=== PATIENT | male | born 1965 | race Caucasian/White ===

== ENCOUNTER 2025-03-05 05:56 | Inpatient (IN) | payer BC, OTHER ==
[~2025-03-05] VITALS: Ht 167.6 cm; Wt 70.3 kg
[2025-03-05 07:22] LABS: BASOPHILS % 0.9 % (0.0-2.0); EOSINOPHILS % 1.6 % (0.0-5.0); HEMATOCRIT. 29.4 % (42.0-52.0); HEMOGLOBIN. 9.6 g/dL (14.0-18.0); LYMPHOCYTES % 9.8 % (20.0-50.0); MEAN PLATELET VOLUME 6.3 fl (7.4-10.4); MONOCYTES % 5.0 % (2.0-8.0); NEUTROPHILS % 82.7 % (40.0-76.0); PLATELET 282 x1000/uL (130-400); RED BLOOD CELL COUNT 3.26 mill/uL (4.7-6.1); RED CELL DISTRIBUTION WIDTH 21.1 % (11.6-14.6)
[2025-03-05 07:32] LABS: INR 1.1
[2025-03-05] MEDS: SODIUM CHLORIDE 0.9% (SEPSIS BOLUS) IV ONE (07:37)
[2025-03-05] MEDS: PIPERACILLIN/TAZO 3.375G/50ML 50 ML IV ONE (07:37)
[2025-03-05 07:41] LABS: CREATININE 3.7 mg/dL (0.6-1.3); UREA NITROGEN BLOOD 23 mg/dL (9-23)
[2025-03-05 07:42] LABS: ETHANOL BLOOD < 10 mg/dL (<10)
[2025-03-05 07:44] LABS: TROPONIN I HIGH SENSITIVITY 213 ng/L (3.0-53)
[2025-03-05] MEDS: ENOXAPARIN 60MG/0.6ML SYR SUBCUT ONE (08:00)
[2025-03-05] MEDS: VANCOMYCIN 1G PREMIX 200 ML IV ONE (08:01)
[2025-03-05 09:35] VITALS: BP 152/62; PULSE 72; RESP 14; TEMP 36.2; O2SAT 88
[2025-03-05] MEDS ORDERED: DEXTROSE 50% WATER 50ML SYRINGE IV PRN (10:30)
[2025-03-05 11:53] LABS: CLARITY URINE CLEAR (CLEAR); COLOR URINE YELLOW (YELLOW); GLUCOSE URINE 1+ (NEGATIVE); KETONES URINE NEGATIVE (NEGATIVE); LEUKOCYTE ESTERASE URINE TRACE (NEGATIVE); NITRITE URINE NEGATIVE (NEGATIVE); OCCULT BLOOD URINE 1+ (NEGATIVE); PH URINE >=9.0 (4.5-8.0); PROTEIN URINE 3+ (NEGATIVE); SPECIFIC GRAVITY URINE 1.012 (1.005-1.030); UROBILINOGEN URINE 0.2 E.U./dL (0.2-1.0)
[2025-03-05 12:30] LABS: *AMPHETAMINES SCREEN URINE NEGATIVE (NEGATIVE); *BARBITURATES SCREEN URINE NEGATIVE (NEGATIVE); *BENZODIAZEPINES SCREEN URINE NEGATIVE (NEGATIVE); *COCAINE SCREEN URINE NEGATIVE (NEGATIVE); METHADONE URINE SCREEN NEGATIVE (NEGATIVE); OPIATES URINE SCREEN NEGATIVE (NEGATIVE); PHENCYCLIDINE URINE SCREEN NEGATIVE (NEGATIVE)
[2025-03-05 12:31] LABS: CANNABINOID URINE SCREEN NEGATIVE (NEGATIVE); ECSTASY MDMA SCREEN URINE NEGATIVE (NEGATIVE)
[2025-03-05] MEDS: BLOOD SUGAR DIAGNOSTIC STRIP TEST SCH (12:40)
[2025-03-05 12:46] LABS: BACTERIA URINE TRACE; SQUAMOUS EPITHELIAL CELL URINE NONE SEEN /lpf (RARE/1+); WBC URINE 0-2 /hpf (0-2)
[2025-03-05] MEDS: INSULIN LISPRO 100 UNITS/ML SUBCUT SCH (12:57)
[2025-03-05 13:27] VITALS: BP 108/60; PULSE 71; RESP 18; TEMP 37.7; O2SAT 99
[2025-03-05] MEDS ORDERED: DORZ10DR9 LEFTEYE (15:40)
[2025-03-05] MEDS ORDERED: CIPR-452 PO (15:40)
[2025-03-05] MEDS ORDERED: SENN-362 MT (15:40)
[2025-03-05] MEDS ORDERED: FAMO20TA8 PO (15:40)
[2025-03-05] MEDS ORDERED: POLY250017 MT (15:40)
[2025-03-05] MEDS ORDERED: AMLO10TA80 PO (15:40)
[2025-03-05] MEDS ORDERED: INSLIS SUBCUT (15:40)
[2025-03-05] MEDS ORDERED: BISA10SU62 RC (15:40)
[2025-03-05] MEDS ORDERED: LEVO50TA8 PO (15:40)
[2025-03-05] MEDS ORDERED: BRIM15DR8 LEFTEYE ×2 (15:40)
[2025-03-05] MEDS ORDERED: CARV25TA47 PO (15:40)
[2025-03-05] MEDS ORDERED: ATOR20TA65 PO (15:40)
[2025-03-05 16:54] VITALS: BP 153/64; PULSE 75; RESP 18; TEMP 36.4; O2SAT 98
[2025-03-05 16:55] VITALS: BP 152/62; PULSE 72; RESP 14; TEMP 36.1956
[2025-03-05 20:12] VITALS: BP 167/75; PULSE 82; RESP 16; TEMP 36.7; O2SAT 95
[2025-03-05] MEDS: LEVETIRACETAM 500MG PREMIX 100 ML IV SCH (20:23)
[2025-03-05 20:49] LABS: HEPATITIS A AB IGM NEGATIVE (Negative); HEPATITIS B CORE AB IGM NEGATIVE (Negative)
[2025-03-05 20:50] LABS: HEPATITIS C AB NON REACTIVE (Neg) (Negative)
[2025-03-05] MEDS: AMLODIPINE 5MG TABLET PO SCH (22:37)
[2025-03-05 22:49] LABS: TROPONIN I HIGH SENSITIVITY 207 ng/L (3.0-53)
[2025-03-06] VITALS (80 sets, daily range): BP systolic 98–230; BP diastolic 51–100; PULSE 66–102; RESP 10–24; TEMP 36.00288–37.2; O2SAT 96–100
[2025-03-06 01:32] LABS: TROPONIN I HIGH SENSITIVITY 193 ng/L (3.0-53)
[2025-03-06] MEDS: MIDAZOLAM HCL 2 MG/2 ML VIAL IV NR (03:22)
[2025-03-06] MEDS ORDERED: NOREPINEPHRINE 32 MG in DEXT 5% WATER 218 ML IV PRN (03:45)
[2025-03-06] MEDS: MIDAZOLAM 100MG/100ML PMX 100 ML IV PRN (04:45)
[2025-03-06] MEDS: FENTANYL 2500MCG/250ML PMX 250 ML IV PRN (04:46)
[2025-03-06 05:29] LABS: BG BASE EXCESS 3.5 mmol/L (-2.0-3.0); BG CARBOXYHEMOGLOBIN 0.9 % (0.5-1.5); BG DEOXYHEMOGLOBIN 0.0 % (0.0-5.0); BG FRACTION INSPIRED OXYGEN 100; BG HCO3 ACT 25.9 mmol/L (21.0-28.0); BG METHEMOGLOBIN 0.1 % (0.5-1.5); BG OXYGEN SATURATION 100.0 % (94.0-98.0); BG OXYHEMOGLOBIN 99.0 % (94.0-98.0); BG PCO2 31.6 mmHg (35.0-48.0); BG PEEP (cmH2O) 5.0 cmH2O; BG PH 7.531 (7.350-7.450); BG PO2 379.7 mmHg (83.0-108.0); BG SAMPLE SITE RIGHT RADIAL; BG TIDAL VOLUME(mL) 500.0 mL; BG TOTAL HEMOGLOBIN 10.9 g/dL (13.5-17.5); BG VENT MODE VENT - AC; BG VENT RATE 18.0 set
[2025-03-06] MEDS: NOREPINEPHRINE 8MG/250ML PMX 250 ML IV PRN (07:12)
[2025-03-06 07:14] LABS: PLATELET 230 x1000/uL (130-400); RED BLOOD CELL COUNT 3.00 mill/uL (4.7-6.1); RED CELL DISTRIBUTION WIDTH 20.5 % (11.6-14.6)
[2025-03-06 08:11] LABS: CREATININE 4.8 mg/dL (0.6-1.3); UREA NITROGEN BLOOD 35.0 mg/dL (9-23)
[2025-03-06] MEDS ORDERED: LIDOCAINE HCL 1% 10 MG/ML 10ML VIAL ONE (08:30)
[2025-03-06] MEDS: ENOXAPARIN 30MG/0.3ML SYR SUBCUT SCH (08:42)
[2025-03-06 09:26] LABS: PHOSPHORUS 3.5 mg/dL (2.5-4.9)
[2025-03-06] MEDS: PIPERACILLIN/TAZO 3.375G/50ML 50 ML IV SCH (12:44)
[2025-03-06 13:14] LABS: T4 FREE 1.15 ng/dL (0.89-1.76)
[2025-03-06 16:14] LABS: BASOPHILS % 0.8 % (0.0-2.0); EOSINOPHILS % 1.0 % (0.0-5.0); HEMATOCRIT. 32.2 % (42.0-52.0); HEMOGLOBIN. 10.5 g/dL (14.0-18.0); LYMPHOCYTES % 16.1 % (20.0-50.0); MEAN PLATELET VOLUME 6.2 fl (7.4-10.4); MONOCYTES % 9.7 % (2.0-8.0); NEUTROPHILS % 72.4 % (40.0-76.0); PLATELET 272 x1000/uL (130-400); RED BLOOD CELL COUNT 3.53 mill/uL (4.7-6.1); RED CELL DISTRIBUTION WIDTH 20.8 % (11.6-14.6)
[2025-03-06] MEDS: CARVEDILOL 3.125 MG TABLET PO SCH (20:42)
[2025-03-06] MEDS ORDERED: LORAZEPAM 2MG/ML UD SYRINGE IV PRN (22:15)
[2025-03-07] VITALS (85 sets, daily range): BP systolic 107–169; BP diastolic 52–79; PULSE 68–89; RESP 0–19; TEMP 36.6696–36.9; O2SAT 99–100
[2025-03-07 06:11] LABS: BASOPHILS % 0.5 % (0.0-2.0); EOSINOPHILS % 0.9 % (0.0-5.0); HEMATOCRIT. 28.0 % (42.0-52.0); HEMOGLOBIN. 9.3 g/dL (14.0-18.0); LYMPHOCYTES % 13.3 % (20.0-50.0); MEAN PLATELET VOLUME 6.6 fl (7.4-10.4); MONOCYTES % 8.9 % (2.0-8.0); NEUTROPHILS % 76.4 % (40.0-76.0); PLATELET 232 x1000/uL (130-400); RED BLOOD CELL COUNT 3.08 mill/uL (4.7-6.1); RED CELL DISTRIBUTION WIDTH 20.8 % (11.6-14.6)
[2025-03-07 06:23] LABS: CREATININE 4.6 mg/dL (0.6-1.3)
[2025-03-07 06:24] LABS: UREA NITROGEN BLOOD 34.0 mg/dL (9-23)
[2025-03-07 06:26] LABS: PHOSPHORUS 3.7 mg/dL (2.5-4.9)
[2025-03-07 08:36] LABS: BG BASE EXCESS 5.1 mmol/L (-2.0-3.0); BG CARBOXYHEMOGLOBIN 1.0 % (0.5-1.5); BG DEOXYHEMOGLOBIN 1.1 % (0.0-5.0); BG FRACTION INSPIRED OXYGEN 40; BG HCO3 ACT 29.5 mmol/L (21.0-28.0); BG METHEMOGLOBIN 0.3 % (0.5-1.5); BG OXYGEN SATURATION 98.9 % (94.0-98.0); BG OXYHEMOGLOBIN 97.6 % (94.0-98.0); BG PCO2 42.6 mmHg (35.0-48.0); BG PEEP (cmH2O) 5.0 cmH2O; BG PH 7.458 (7.350-7.450); BG PO2 120.1 mmHg (83.0-108.0); BG SAMPLE SITE RIGHT RADIAL; BG TIDAL VOLUME(mL) 450.0 mL; BG TOTAL HEMOGLOBIN 9.6 g/dL (13.5-17.5); BG TOTAL RESPIRATORY RATE 14 b/min; BG VENT MODE VENT - AC; BG VENT RATE 14.0 set
[2025-03-07] MEDS: CLONIDINE 0.1MG TABLET PO PRN (15:34)
[2025-03-07] MEDS: ATORVASTATIN CALCIUM 20MG TABLET PO SCH (20:10)
[2025-03-08] VITALS (108 sets, daily range): BP systolic 97–154; BP diastolic 47–64; PULSE 59–78; RESP 0–21; TEMP 36.3–37.1; O2SAT 99–100
[2025-03-08 07:11] LABS: BASOPHILS % 0.4 % (0.0-2.0); EOSINOPHILS % 1.6 % (0.0-5.0); HEMATOCRIT. 24.9 % (42.0-52.0); HEMOGLOBIN. 8.1 g/dL (14.0-18.0); LYMPHOCYTES % 13.6 % (20.0-50.0); MEAN PLATELET VOLUME 6.8 fl (7.4-10.4); MONOCYTES % 9.4 % (2.0-8.0); NEUTROPHILS % 75.0 % (40.0-76.0); PLATELET 185 x1000/uL (130-400); RED BLOOD CELL COUNT 2.71 mill/uL (4.7-6.1); RED CELL DISTRIBUTION WIDTH 19.6 % (11.6-14.6)
[2025-03-08 07:27] LABS: CREATININE 4.8 mg/dL (0.6-1.3); UREA NITROGEN BLOOD 35.0 mg/dL (9-23)
[2025-03-08 07:30] LABS: PHOSPHORUS 4.5 mg/dL (2.5-4.9)
[2025-03-08] MEDS: LEVOTHYROXINE SODIUM 50MCG TABLET PO SCH (08:10)
[2025-03-08 08:57] LABS: BG BASE EXCESS 4.5 mmol/L (-2.0-3.0); BG CARBOXYHEMOGLOBIN 1.4 % (0.5-1.5); BG DEOXYHEMOGLOBIN 0.7 % (0.0-5.0); BG FRACTION INSPIRED OXYGEN 40; BG HCO3 ACT 28.2 mmol/L (21.0-28.0); BG METHEMOGLOBIN 0.3 % (0.5-1.5); BG OXYGEN SATURATION 99.3 % (94.0-98.0); BG OXYHEMOGLOBIN 97.6 % (94.0-98.0); BG PCO2 38.0 mmHg (35.0-48.0); BG PEEP (cmH2O) 5.0 cmH2O; BG PH 7.488 (7.350-7.450); BG PO2 142.2 mmHg (83.0-108.0); BG SAMPLE SITE RIGHT RADIAL; BG TIDAL VOLUME(mL) 450.0 mL; BG TOTAL HEMOGLOBIN 9.1 g/dL (13.5-17.5); BG TOTAL RESPIRATORY RATE 14 b/min; BG VENT MODE VENT - AC; BG VENT RATE 14.0 set
[2025-03-08 10:55] LABS: ASPARTATE AMINOTRANSFERASE 17 IU/L (<34); BILIRUBIN DIRECT 0.2 mg/dL (<=3.0); BILIRUBIN TOTAL 0.7 mg/dL (0.1-1.0); PROTEIN TOTAL 5.5 g/dL (6.0-8.3)
[2025-03-08] MEDS: DEXMEDETOMIDINE 400 MCG/100 ML 100 ML IV PRN (12:39)
[2025-03-08] MEDS: LACTULOSE 20G/30ML UDC NG NR (14:18)
[2025-03-09] VITALS (93 sets, daily range): BP systolic 74–176; BP diastolic 50–125; PULSE 54–94; RESP 10–28; TEMP 36.3–36.9; O2SAT 98–100
[2025-03-09 06:55] LABS: BASOPHILS % 0.6 % (0.0-2.0); EOSINOPHILS % 5.7 % (0.0-5.0); HEMATOCRIT. 24.9 % (42.0-52.0); HEMOGLOBIN. 8.3 g/dL (14.0-18.0); LYMPHOCYTES % 14.3 % (20.0-50.0); MEAN PLATELET VOLUME 6.9 fl (7.4-10.4); MONOCYTES % 10.4 % (2.0-8.0); NEUTROPHILS % 69.0 % (40.0-76.0); PLATELET 175 x1000/uL (130-400); RED BLOOD CELL COUNT 2.75 mill/uL (4.7-6.1); RED CELL DISTRIBUTION WIDTH 18.7 % (11.6-14.6)
[2025-03-09 07:03] LABS: UREA NITROGEN BLOOD 47 mg/dL (9-23)
[2025-03-09 07:05] LABS: ASPARTATE AMINOTRANSFERASE 18 IU/L (<34); BILIRUBIN TOTAL 0.7 mg/dL (0.1-1.0); PHOSPHORUS 5.8 mg/dL (2.5-4.9); PROTEIN TOTAL 5.8 g/dL (6.0-8.3)
[2025-03-09 07:25] LABS: CREATININE 5.8 mg/dL (0.6-1.3)
[2025-03-09 10:25] LABS: BG BASE EXCESS 1.8 mmol/L (-2.0-3.0); BG CARBOXYHEMOGLOBIN 0.6 % (0.5-1.5); BG DEOXYHEMOGLOBIN 1.6 % (0.0-5.0); BG FRACTION INSPIRED OXYGEN 40; BG HCO3 ACT 26.2 mmol/L (21.0-28.0); BG METHEMOGLOBIN 0.3 % (0.5-1.5); BG OXYGEN SATURATION 98.4 % (94.0-98.0); BG OXYHEMOGLOBIN 97.5 % (94.0-98.0); BG PCO2 40.1 mmHg (35.0-48.0); BG PEEP (cmH2O) 5.0 cmH2O; BG PH 7.433 (7.350-7.450); BG PO2 119.6 mmHg (83.0-108.0); BG SAMPLE SITE RIGHT RADIAL; BG TIDAL VOLUME(mL) 400.0 mL; BG TOTAL HEMOGLOBIN 9.6 g/dL (13.5-17.5); BG VENT MODE VENT - AC; BG VENT RATE 14.0 set
[2025-03-09 13:20] LABS: PROTEIN BODY FLUID 3.2 gm/dL
[2025-03-09 13:37] LABS: BODY FLUID RBC 77 /cu mm (0-2000); BODY FLUID WBC 26 /cu mm (0-200)
[2025-03-09 18:48] LABS: BG BASE EXCESS 2.0 mmol/L (-2.0-3.0); BG CARBOXYHEMOGLOBIN 0.4 % (0.5-1.5); BG DEOXYHEMOGLOBIN 0.7 % (0.0-5.0); BG FRACTION INSPIRED OXYGEN 40; BG HCO3 ACT 25.8 mmol/L (21.0-28.0); BG METHEMOGLOBIN 0.3 % (0.5-1.5); BG OXYGEN SATURATION 99.3 % (94.0-98.0); BG OXYHEMOGLOBIN 98.6 % (94.0-98.0); BG PCO2 36.8 mmHg (35.0-48.0); BG PEEP (cmH2O) 5.0 cmH2O; BG PH 7.463 (7.350-7.450); BG PO2 154.4 mmHg (83.0-108.0); BG SAMPLE SITE RIGHT RADIAL; BG TOTAL HEMOGLOBIN 10.1 g/dL (13.5-17.5); BG VENT MODE VENT - CPAP
[2025-03-09] MEDS: EPOETIN ALFA-EPBX 4,000 UNIT/ML VIAL SUBCUT SCH (20:45)
[2025-03-09 21:29] LABS: BG BASE EXCESS 3.5 mmol/L (-2.0-3.0); BG CARBOXYHEMOGLOBIN 0.6 % (0.5-1.5); BG DEOXYHEMOGLOBIN 1.9 % (0.0-5.0); BG FLOW(L/min) 3.00 L/min; BG FRACTION INSPIRED OXYGEN 32; BG HCO3 ACT 27.9 mmol/L (21.0-28.0); BG METHEMOGLOBIN 0.3 % (0.5-1.5); BG OXYGEN SATURATION 98.1 % (94.0-98.0); BG OXYHEMOGLOBIN 97.2 % (94.0-98.0); BG PCO2 41.9 mmHg (35.0-48.0); BG PH 7.442 (7.350-7.450); BG PO2 104.2 mmHg (83.0-108.0); BG SAMPLE SITE RIGHT RADIAL; BG TOTAL HEMOGLOBIN 10.9 g/dL (13.5-17.5); BG VENT MODE NASAL CANNULA
[2025-03-10] VITALS (53 sets, daily range): BP systolic 77–177; BP diastolic 17–150; PULSE 63–87; RESP 13–26; TEMP 36.6–36.9; O2SAT 87–100
[2025-03-10 06:37] LABS: BASOPHILS % 0.7 % (0.0-2.0); EOSINOPHILS % 2.8 % (0.0-5.0); HEMATOCRIT. 26.9 % (42.0-52.0); HEMOGLOBIN. 8.7 g/dL (14.0-18.0); LYMPHOCYTES % 18.7 % (20.0-50.0); MEAN PLATELET VOLUME 7.0 fl (7.4-10.4); MONOCYTES % 12.4 % (2.0-8.0); NEUTROPHILS % 65.4 % (40.0-76.0); PLATELET 178 x1000/uL (130-400); RED BLOOD CELL COUNT 2.93 mill/uL (4.7-6.1); RED CELL DISTRIBUTION WIDTH 18.8 % (11.6-14.6)
[2025-03-10 07:04] LABS: UREA NITROGEN BLOOD 43 mg/dL (9-23)
[2025-03-10 07:06] LABS: ASPARTATE AMINOTRANSFERASE 17 IU/L (<34); BILIRUBIN TOTAL 0.7 mg/dL (0.1-1.0); PROTEIN TOTAL 6.1 g/dL (6.0-8.3)
[2025-03-10 07:09] LABS: CREATININE 5.6 mg/dL (0.6-1.3)
[2025-03-10] MEDS: ONDANSETRON HCL 4MG/2ML INJ IV PRN (08:33)
[2025-03-10] MEDS: ACETAMINOPHEN 325MG TABLET PO PRN (08:34)
[2025-03-10] MEDS ORDERED: AMLODIPINE 5MG TABLET PO SCH (10:00)
[2025-03-10 11:39] LABS: BG BASE EXCESS -0.2 mmol/L (-2.0-3.0); BG CARBOXYHEMOGLOBIN 1.5 % (0.5-1.5); BG DEOXYHEMOGLOBIN 1.5 % (0.0-5.0); BG FLOW(L/min) 1.00 L/min; BG FRACTION INSPIRED OXYGEN 24; BG HCO3 ACT 23.4 mmol/L (21.0-28.0); BG METHEMOGLOBIN 0.0 % (0.5-1.5); BG OXYGEN SATURATION 98.5 % (94.0-98.0); BG OXYHEMOGLOBIN 97.0 % (94.0-98.0); BG PCO2 34.1 mmHg (35.0-48.0); BG PH 7.454 (7.350-7.450); BG PO2 110.4 mmHg (83.0-108.0); BG SAMPLE SITE RIGHT RADIAL; BG TOTAL HEMOGLOBIN 9.4 g/dL (13.5-17.5); BG VENT MODE NASAL CANNULA
[2025-03-11] VITALS (26 sets, daily range): BP systolic 107–173; BP diastolic 46–147; PULSE 69–84; RESP 11–26; TEMP 36.114–36.8; O2SAT 95–100
[2025-03-11 05:51] LABS: BASOPHILS % 1.2 % (0.0-2.0); EOSINOPHILS % 8.7 % (0.0-5.0); HEMATOCRIT. 29.9 % (42.0-52.0); HEMOGLOBIN. 9.9 g/dL (14.0-18.0); LYMPHOCYTES % 22.6 % (20.0-50.0); MEAN PLATELET VOLUME 7.1 fl (7.4-10.4); MONOCYTES % 10.6 % (2.0-8.0); NEUTROPHILS % 56.9 % (40.0-76.0); PLATELET 189 x1000/uL (130-400); RED BLOOD CELL COUNT 3.33 mill/uL (4.7-6.1); RED CELL DISTRIBUTION WIDTH 18.5 % (11.6-14.6)
[2025-03-11 05:54] LABS: UREA NITROGEN BLOOD 52 mg/dL (9-23)
[2025-03-11 05:56] LABS: ASPARTATE AMINOTRANSFERASE 15 IU/L (<34); BILIRUBIN TOTAL 0.5 mg/dL (0.1-1.0); PROTEIN TOTAL 6.2 g/dL (6.0-8.3)
[2025-03-11 06:07] LABS: CREATININE 6.2 mg/dL (0.6-1.3)
[2025-03-11] MEDS: AMLODIPINE 10MG TABLET PO SCH (09:16)
[2025-03-12] VITALS: BP 156/92; PULSE 81; RESP 18; TEMP 36.8; O2SAT 98
[2025-03-12 04:00] VITALS: BP 134/73; PULSE 75; RESP 20; TEMP 37.2; O2SAT 97
[2025-03-12 07:04] LABS: BASOPHILS % 1.1 % (0.0-2.0); EOSINOPHILS % 7.9 % (0.0-5.0); HEMATOCRIT. 29.6 % (42.0-52.0); HEMOGLOBIN. 9.6 g/dL (14.0-18.0); LYMPHOCYTES % 26.8 % (20.0-50.0); MEAN PLATELET VOLUME 7.2 fl (7.4-10.4); MONOCYTES % 9.2 % (2.0-8.0); NEUTROPHILS % 55.0 % (40.0-76.0); PLATELET 187 x1000/uL (130-400); RED BLOOD CELL COUNT 3.26 mill/uL (4.7-6.1); RED CELL DISTRIBUTION WIDTH 18.7 % (11.6-14.6)
[2025-03-12 07:26] LABS: UREA NITROGEN BLOOD 43.0 mg/dL (9-23)
[2025-03-12 07:28] LABS: PHOSPHORUS 4.9 mg/dL (2.5-4.9)
[2025-03-12 08:00] VITALS: BP 144/69; PULSE 81; RESP 17; TEMP 36.3; O2SAT 96
[2025-03-12 08:43] LABS: CREATININE 5.4 mg/dL (0.6-1.3)
[2025-03-12] MEDS: SODIUM ZIRCONIUM CYCLOSILICATE 10GM/PACKET PO NR (10:29)
[2025-03-12 12:00] VITALS: BP 160/70; PULSE 75; RESP 16; TEMP 36.2; O2SAT 97
[2025-03-12 16:00] VITALS: BP 147/69; PULSE 72; RESP 16; TEMP 36.3; O2SAT 97
[2025-03-12 20:00] VITALS: BP 139/60; PULSE 77; RESP 18; TEMP 36.3; O2SAT 97
[2025-03-12] MEDS: LEVETIRACETAM 250MG TABLET PO SCH (21:11)
[2025-03-12] MEDS: CARVEDILOL 3.125 MG TABLET PO SCH (21:13)
[2025-03-13] VITALS (16 sets, daily range): BP systolic 88–161; BP diastolic 48–76; PULSE 18–90; RESP 17–50; TEMP 36.4–36.61404; O2SAT 96–98
[2025-03-13 06:06] LABS: UREA NITROGEN BLOOD 53.0 mg/dL (9-23)
[2025-03-13 06:09] LABS: CREATININE 6.8 mg/dL (0.6-1.3); PHOSPHORUS 6.1 mg/dL (2.5-4.9)
[2025-03-13 06:14] LABS: BASOPHILS % 0.7 % (0.0-2.0); EOSINOPHILS % 5.6 % (0.0-5.0); HEMATOCRIT. 28.5 % (42.0-52.0); HEMOGLOBIN. 9.0 g/dL (14.0-18.0); LYMPHOCYTES % 23.6 % (20.0-50.0); MEAN PLATELET VOLUME 6.9 fl (7.4-10.4); MONOCYTES % 7.0 % (2.0-8.0); NEUTROPHILS % 63.1 % (40.0-76.0); PLATELET 210 x1000/uL (130-400); RED BLOOD CELL COUNT 3.12 mill/uL (4.7-6.1); RED CELL DISTRIBUTION WIDTH 18.6 % (11.6-14.6)
== END 2025-03-13 20:58 | DRG 100 ==
LOC: ER 05:56 → 7WST 07:51 → EDBEDREQ 07:53 → EDBEDREQTM 07:53 → ENRESERV 07:58 → CVICU 03-06 03:13 → 7WST 03-11 18:53
PROVIDERS: ADMIT Internal Medicine; ATTEND Internal Medicine
PROC: 5A1945Z Respiratory Ventilation, 24-96 Consecutive Hours (ICD-10-PCS; principal; 2025-03-06)
PROC: 0BH17EZ Insertion of Endotracheal Airway into Trachea, Via Natural or Artificial Opening (ICD-10-PCS; 2025-03-06)
PROC: 4A00X4Z Measurement of Central Nervous Electrical Activity, External Approach (ICD-10-PCS; 2025-03-06)
PROC: 5A12012 Performance of Cardiac Output, Single, Manual (ICD-10-PCS; 2025-03-06)
PROC: 02HV33Z Insertion of Infusion Device into Superior Vena Cava, Percutaneous Approach (ICD-10-PCS; 2025-03-06)
PROC: B548ZZA Ultrasonography of Superior Vena Cava, Guidance (ICD-10-PCS; 2025-03-06)
PROC: 5A1D70Z Performance of Urinary Filtration, Intermittent, Less than 6 Hours Per Day (ICD-10-PCS; 2025-03-06)
PROC: 5A1D70Z Performance of Urinary Filtration, Intermittent, Less than 6 Hours Per Day (ICD-10-PCS; 2025-03-07)
PROC: 0W993ZZ Drainage of Right Pleural Cavity, Percutaneous Approach (ICD-10-PCS; 2025-03-09)
PROC: 5A1D70Z Performance of Urinary Filtration, Intermittent, Less than 6 Hours Per Day (ICD-10-PCS; 2025-03-09)
PROC: 5A1D70Z Performance of Urinary Filtration, Intermittent, Less than 6 Hours Per Day (ICD-10-PCS; 2025-03-11)
PROC: 5A1D70Z Performance of Urinary Filtration, Intermittent, Less than 6 Hours Per Day (ICD-10-PCS; 2025-03-13)
DX: G40.909 Epilepsy, unspecified, not intractable, without status epilepticus (principal); I21.4 Non-ST elevation (NSTEMI) myocardial infarction; N18.6 End stage renal disease; J96.01 Acute respiratory failure with hypoxia; I46.9 Cardiac arrest, cause unspecified; I42.8 Other cardiomyopathies; I50.22 Chronic systolic (congestive) heart failure; I13.2 Hypertensive heart and chronic kidney disease with heart failure and with stage 5 chronic kidney disease, or end stage renal disease; N13.30 Unspecified hydronephrosis; N25.81 Secondary hyperparathyroidism of renal origin; R18.8 Other ascites; J91.8 Pleural effusion in other conditions classified elsewhere; Z99.2 Dependence on renal dialysis; E11.22 Type 2 diabetes mellitus with diabetic chronic kidney disease; E03.9 Hypothyroidism, unspecified; E78.5 Hyperlipidemia, unspecified; H40.9 Unspecified glaucoma; D63.8 Anemia in other chronic diseases classified elsewhere; E83.39 Other disorders of phosphorus metabolism; F03.90 Unspecified dementia, unspecified severity, without behavioral disturbance, psychotic disturbance, mood disturbance, and anxiety; I25.10 Atherosclerotic heart disease of native coronary artery without angina pectoris; Z87.01 Personal history of pneumonia (recurrent); E11.42 Type 2 diabetes mellitus with diabetic polyneuropathy; K21.9 Gastro-esophageal reflux disease without esophagitis; K59.00 Constipation, unspecified; E11.319 Type 2 diabetes mellitus with unspecified diabetic retinopathy without macular edema; Z79.899 Other long term (current) drug therapy; Z82.49 Family history of ischemic heart disease and other diseases of the circulatory system
CPT/HCPCS: 31500; 31720; 32555; 36415; 36573; 36600; 71045; 71250; 74018; 76604; 76857; 80048; 80053; 80076; 80305; 80320; 81003; 82140; 82375; 82805; 82962; 83605; 84100; 84145; 84439; 84443; 84481; 84484; 85025; 85027; 86705; 86709; 87070; 87340; 90935; 92610; 93005; 93306; 94002; 94003; 94070; 94664; 94760; 95816; 96365; 97166; 98960; 99291; A4606; C1725; J0885; J1650; J1815; J1953; J2003; J2250; J2405; J2543; J3010; J3373; J3490; J7030; G0480

== ENCOUNTER 2025-03-27 04:45 | Emergency (ER) | payer OTHER ==
[~2025-03-27] VITALS: Ht 172.7 cm; Wt 72.0 kg
[~2025-03-27 04:45] MED LIST: AMLO10TA80 PO; ATOR20TA65 PO; BISA10SU62 RC; BRIM15DR8 LEFTEYE; CARV25TA47 PO; CIPR-452 PO; DORZ10DR9 LEFTEYE; FAMO20TA8 PO; INSLIS SUBCUT; LEVO50TA8 PO; POLY250017 MT; SENN-362 MT
[2025-03-27 04:46] VITALS: O2SAT 100
[2025-03-27] MEDS ORDERED: LACTATED RINGERS 1,000 ML IV SCH (05:30)
[2025-03-27 06:01] LABS: BASOPHILS % 0.5 % (0.0-2.0); EOSINOPHILS % 1.2 % (0.0-5.0); HEMATOCRIT. 28.6 % (42.0-52.0); HEMOGLOBIN. 9.4 g/dL (14.0-18.0); LYMPHOCYTES % 12.1 % (20.0-50.0); MEAN PLATELET VOLUME 6.4 fl (7.4-10.4); MONOCYTES % 6.5 % (2.0-8.0); NEUTROPHILS % 79.7 % (40.0-76.0); PLATELET 344 x1000/uL (130-400); RED BLOOD CELL COUNT 3.27 mill/uL (4.7-6.1); RED CELL DISTRIBUTION WIDTH 17.6 % (11.6-14.6)
[2025-03-27] MEDS: LEVETIRACETAM 500MG PREMIX 100 ML IV ONE ×2 (06:11)
[2025-03-27 06:18] LABS: UREA NITROGEN BLOOD 40 mg/dL (9-23)
[2025-03-27 06:20] LABS: ASPARTATE AMINOTRANSFERASE 28 IU/L (<34)
[2025-03-27 06:21] LABS: BILIRUBIN TOTAL 0.3 mg/dL (0.1-1.0); PROTEIN TOTAL 6.4 g/dL (6.0-8.3)
[2025-03-27 06:33] LABS: CREATININE 4.7 mg/dL (0.6-1.3)
[2025-03-27 09:08] VITALS: BP 135/65; PULSE 69; RESP 20; TEMP 36.7; O2SAT 94
== END 2025-03-27 09:08 | disposition home or self-care (01) ==
LOC: ER 04:45
DX: R56.9 Unspecified convulsions (principal); D64.9 Anemia, unspecified; E11.22 Type 2 diabetes mellitus with diabetic chronic kidney disease; N18.6 End stage renal disease; Z79.899 Other long term (current) drug therapy; Z99.2 Dependence on renal dialysis
CPT/HCPCS: 80053; 85025; 36415; 96365; 99285; J1953; Z7610 ×2